=== PATIENT | female | born 1940 | race Caucasian/White ===

== ENCOUNTER → 2019-08-07 | Outpatient (CLI) | payer MEDICARE, OTHER ==
[~2019-08-07] MED LIST: TELM20TA PO
--- NOTE | 2019-08-07 17:06 | RAD ---
KNEE RIGHT 3V History: Knee pain. FINDINGS: 3 views are obtained of the right knee. Tricompartmental DJD with marginal spurring. Chondrocalcinosis at the medial and lateral joint compartments. No evidence of acute fracture. No evidence of aggressive bone destruction. No significant soft tissue abnormality. IMPRESSION: DJD. Electronically signed by: Max Miller MD (08/07/2019 5:03 PM) [id number]
--- NOTE | 2019-08-08 04:23 | RAD ---
Three view lumbosacral spine History: Pain AP, coned-down lateral and lateral views of the lumbosacral spine were obtained. There is grade 1 anterolisthesis of L4 on L5 there is minimal degenerative retrolisthesis of L3 on L4. There is loss of intervertebral disc height at all levels. There is no loss of vertebral body stature. There is sclerotic changes of facets. Impression: Moderate degenerative changes. No acute findings. End Impression Electronically signed by: Jori Rodgers III, MD (08/08/2019 4:20 AM) [id number]
== END | disposition home or self-care (01) ==
LOC: DXRAD 12:16
PROVIDERS: ATTEND Specialist
DX: M17.11 Unilateral primary osteoarthritis, right knee (principal); M11.261 Other chondrocalcinosis, right knee; M43.16 Spondylolisthesis, lumbar region; M47.817 Spondylosis without myelopathy or radiculopathy, lumbosacral region
CPT/HCPCS: 72100; 73562